=== PATIENT | female | born 1985 | race Caucasian/White ===

== ENCOUNTER 2025-01-25 09:20 | Emergency (ER) | payer BC, SELFPAY ==
[2025-01-25 09:26] VITALS: BP 151/102
[2025-01-25 09:53] LABS: Urine Character Clear (Clear)
[2025-01-25 10:02] LABS: Urine Squamous Cell >30 /LPF (Few)
[2025-01-25 10:03] LABS: Urine Red Blood Cell 0-2 /HPF (0-2)
--- NOTE | 2025-01-25 10:06 | ED.GENMED ---
History of Present Illness
General
Chief Complaint: Back Pain
Source: patient
Time Seen by Provider: 01/25/25 09:46
History of Present Illness
History of Present Illness:
39-year-old female presenting to the emergency department for evaluation of mid to right upper back pain that has been ongoing for 1 week, initially more mild, thought to be may be related to urinary tract infections and went to the primary care
provider who did a urinalysis but had started an antibiotic, urine culture came back negative so patient stopped taking the antibiotic. She does report maybe feeling a little bit of urinary frequency during this time. Has attempted Tylenol/Advil
with minimal relief. Pain not reproducible with movement but she is able to palpate the area which does seem to reproduce the pain. Denies any fevers, chills, rigors, cough, pleurisy, hemoptysis, chest pain, shortness of breath or any other
concerns. She did not take anything for the pain prior to arrival. Social history noncontributory. Family history also noncontributory.
Past History
Past History
ED Past Medical History: None
ED Past Surgical History: and Other (Breast reduction)
Social History
Tobacco: Non-smoker
Alcohol: None
Drug: None
Personal:
Living: with family
Review of Systems
Review of Systems
All Other Systems: ROS reviewed and negative except as documented in HPI and ROS
Phy Exam
Physical Exam
Physical Exam:
GENERAL: Alert , in no apparent distress
EYE: conjunctiva clear
NECK: Supple
ENT: o/p clr, mmm.
CARDIAC: Regular rate and rhythm
LUNGS: Clear breath sounds bilaterally, no acute respiratory distress, no wheezes/rales/rhonchi
ABDOMEN: Soft, nontender, nondistended
BACK: There is reproducible tenderness to the right mid back just below the inferior portion of the scapula
NEUROLOGICAL: Alert and oriented
SKIN: Warm and dry, skin intact.
MUSCULOSKELETAL: well perfused.
PSYCH: Normal and appropriate interaction.
Scores
Heart Failure Risk
Heart Failure Risk Score: Not Applicable
Heart Score for Chest Pain Patients
STEMI patient?: Not applicable
Withdrawal Assessment of Alcohol
Withdrawal Assessment Completed?: Not applicable
Course
Orders/Labs/Results
Orders:
Orders
01/25/25 09:40
Urinalysis Reflex To Culture Urgent
Date Specimen was Collected: 01/25/25
Time Specimen was Collected: 09:39
Urine Microscopic Reflex Cult Urgent
Urine Culture Urgent
MARTIN Source: U
Specimen Description:
Date Specimen was Collected: 01/25/25
Time Specimen was Collected: 09:39
01/25/25 09:57
Electrocardiogram (*1) Urgent
Reason for Study: Other
Other Reason for Exam: upper back pain
EKG- Treatment ONCE
01/25/25 10:20
Complete Blood Count/With Diff Urgent
Comprehensive Metabolic Panel Urgent
D-Dimer Urgent
HCG, Serum Qualitative Screen Urgent
Comment: HCG QUAL ADDED ON BY FLOOR 10:50AM 01-25-25
Troponin I Urgent
01/25/25 10:49
CT Chest PE Study Urgent
Comment:
Reason For Exam: right upper back pain
01/25/25 10:52
Add On- LAB Urgent
Tests Added?: hcg qual
Abnormal Lab Results
01/25/25 01/25/25
09:40 10:20
WBC 4.6 L 10^3/uL
(4.8-10.8)
MPV 11.1 H fL
(7.4-10.4)
D-Dimer 0.88 H ug/mlFEU
(0.00-0.50)
Chloride 111 H mmol/L
(98-107)
Leukocyte Esterase Rfl 1+ A
(Negative)
Urine Bacteria (Reflex) Few A
(Negative)
Urine Albumin (Reflex) 1+ A
(Neg - Trace)
01/25/25 10:20
01/25/25 10:20
Vital Signs
Initial and Last Documented VS:
Initial Vital Signs
Temp Pulse Resp BP Pulse Ox
98.0 F 97 16 151/102 98
01/25/25 09:26 01/25/25 09:26 01/25/25 09:26 01/25/25 09:26 01/25/25 09:26
Last Documented Vital Signs
Temp Pulse Resp BP Pulse Ox
98.0 F 84 16 151/102 99
01/25/25 09:26 01/25/25 10:25 01/25/25 10:25 01/25/25 09:26 01/25/25 10:25
MDM/Problems Addressed
Differential Diagnosis Includes:
Musculoskeletal back pain
Less concern for urinary tract infection given negative culture from earlier this week
PE considered
Dissection
Atypical ACS
No skin findings to suggest shingles or infectious etiology
MDM/Problems Addressed:
39-year-old female presented the ER for right-sided upper back pain for the last week, gradually worsening, minimal improvement with Tylenol and NSAIDs. Pain reproducible here. Suspect muscular etiology is most likely. Noted elevated blood
pressure in triage. Will check labs, EKG and imaging pending D-dimer result. Disposition pending.
*Radiology
Radiology exam reviewed: radiology read reviewed
*Pulse Oximetry
SaO2: 98
Oxygen Mode of Delivery: Room air
Patient hypoxic: no
*EKG
Comparison EKG: no comparison EKG present
Heart Rate: 73
Rate: normal
Rhythm: sinus
Ischemia: no ischemia
*[employer] Interpretation
Rate: normal
Heart Rate: 73
Rhythm: sinus
*Critical Care Note
Total Time (30-74mins, 75-104mins- exclusive of procedures): Not Applicable
Patient Management
Escalation/DeEscalation of care consider admission/obs:
CTA is negative for pulmonary embolism. No acute findings on workup. At this time I do suspect muscular etiology is most likely. Will treat with baclofen and continued NSAIDs as needed for pain. Follow-up with primary care provider. Aware of
return cautions.
ED Attending Note
-
Portions of this chart may have been created with voice recognition software.� Occasional wrong word or��sound alike� substitutions may have occurred due to the inherent limitations of voice recognition software.
Discharge Plan
Departure
Patient Disposition: Home (Routine Discharge)
Date of Disposition: 01/25/25
Time of Disposition: 12:20
Patient with high blood pressure during this ER visit?: Yes
Discharge Problem:
Dorsalgia of thoracic region
Instructions: Upper Back Pain (DC)
Prescriptions:
New
baclofen 10 mg tablet
10 mg PO BID Qty: 8 0RF
No Action
citalopram 10 MG tablet
10 mg PO DAILY
bupropion HCl 100 MG tablet
100 mg PO DAILY
hydrocortisone acetate 25 MG suppository
25 mg HI BID Qty: 10 0RF
cefdinir 300 mg capsule
300 mg PO BID Qty: 14 0RF
Referrals:
Anabella Thomas DO [Family Provider, Family Practice]
Interventions
Interventions:
*Risk Screen - Suicide Last Done: 01/25/25 09:26
*General Assessment Last Done: 01/25/25 10:24
*Neglect/Abuse Screening Last Done: 01/25/25 09:26
*ED- Fall Risk Assessment Last Done: 01/25/25 10:24
*ED COVID-19 Vaccine History Last Done: 01/25/25 10:24
Discharge Date and Time
Print Language: FAROESE
[2025-01-25 10:22] VITALS: BMI 27.1
[2025-01-25 10:25] VITALS: BP 109/82
[2025-01-25 10:28] LABS: Hematocrit 43.5 % (37.0-47.0); Hemoglobin 14.7 g/dL (12.0-16.0); Mean Corp Hgb Conc. 33.8 g/dL (33.0-37.0); Mean Corpuscular Volume 88.6 fL (81.0-99.0); Nucleated Red Blood Cells % 0 %; Platelet Count 185 10^3/uL (130-400); Red Cell Dist. Width 12.9 % (11.5-14.5)
[2025-01-25 10:44] LABS: D-Dimer 0.88 ug/mlFEU (0.00-0.50)
[2025-01-25 10:48] LABS: ALT (SGPT) 16 U/L (0-35); AST (SGOT) 20 U/L (14-36); Albumin 4.7 g/dl (3.5-5.0); Alkaline Phosphatase 40 U/L (38-126); Blood Urea Nitrogen 14 mg/dl (7-17); Calcium 9.1 mg/dl (8.4-10.2); Carbon Dioxide 24 mmol/L (22-30); Chloride 111 mmol/L (98-107); Estimated Creatinine Clearance 108 ml/min; Glucose 86 mg/dl (70-99); Potassium 4.6 mmol/L (3.5-5.1); Sodium 139 mmol/L (135-145); Total Protein 7.4 g/dl (6.3-8.2); eGFR > 60.00
[2025-01-25 10:59] LABS: Troponin I < 0.012 ng/ml
[2025-01-25 11:00] VITALS: BP 97/65
[2025-01-25 11:17] LABS: HCG, Serum Qualitative Screen Negative
[2025-01-25 12:35] VITALS: BP 116/77
== END 2025-01-25 12:54 | disposition home or self-care (01) ==
LOC: EMR 09:20
PROVIDERS: Physician Assistant Medical; EMERGENCY PHYSICIAN Emergency Medicine; FAMILY PHYSICIAN Family Medicine
DX: M54.6 Pain in thoracic spine (principal); R35.0 Frequency of micturition; R03.0 Elevated blood-pressure reading, without diagnosis of hypertension
CPT/HCPCS: 99284; 71275; 80053; 81003; 81015; 84484; 84703; 85025; 85379; 87086; 93005; Q9967

== ENCOUNTER 2025-03-21 15:18 | Emergency (ER) | payer BC, SELFPAY ==
[2025-03-21 15:22] VITALS: BP 127/85
[2025-03-21 17:05] VITALS: BP 103/58
[2025-03-21 17:07] VITALS: BP 103/58
[2025-03-21 17:13] VITALS: BMI 26.8
--- NOTE | 2025-03-21 17:40 | ED.GENMED ---
History of Present Illness
General
Chief Complaint: Fever
Source: patient and spouse
Exam Limitations: none
Time Seen by Provider: 03/21/25 17:11
Nursing documentation reviewed up to this point in time: agreed with
History of Present Illness
History of Present Illness:
Patient presents to ED secondary to sudden onset of fever, chills, and diffuse body ache, which woke the patient up from sleep last night. Since then, symptoms have been persistent, with decreased appetite. Denies headache. Denies neck pain.
Denies sore throat. Denies coughing. Denies chest pain. Denies shortness of breath. Denies abdominal pain. Denies vomiting or diarrhea. Denies rash. Denies recent travel. Denies sick contact. Patient feels as though she has 'flulike'
symptoms. Patient had been treated successfully for Lyme disease in the past, when she did have similar muscle/body ache.
Past History
Past History
ED Past Medical History: None
ED Past Surgical History: and Other (Breast reduction)
Social History
Tobacco: Non-smoker
Alcohol: None
Drug: None
Personal:
Living: with family
Review of Systems
Review of Systems
Allergies reviewed?: Yes
All Other Systems: ROS reviewed and negative except as documented in HPI and ROS
Constitutional: Reports fever and chills
Respiratory: Reports no symptoms; Denies cough or trouble breathing
Cardiac: Reports no symptoms
ABD/GI: Reports no symptoms; Denies vomiting or diarrhea
: Reports no symptoms; Denies dysuria or frequency
Musculoskeletal: Reports muscle pain
Skin: Reports no symptoms
Neurological: Reports no symptoms; Denies dizzy, headache or weakness
Phy Exam
Physical Exam
Physical Exam:
Physical Exam
General: no apparent distress, not acutely ill. febrile. tachycardic
Head: nc/at. eomi
Neck: supple. no meningeal signs. normal posterior pharynx
Heart: tachycardic. no murmur
Lungs: no acute respiratory distress. clear bilaterally
Abdomen: normal bowel sounds. not tender.
Neuro: alert and oriented x 3. no focal neurological deficits
Skin: no rash
Psychiatric: well kept. interactive and cooperative
Extremities: no edema. no calf tenderness.
Sepsis
Sepsis Screening
Sepsis Assessment: Sepsis Ruled Out
Sepsis Screen
Sepsis Screen: Sepsis Ruled Out
Date: 03/22/25
Time: 06:40
Course
Orders/Labs/Results
Orders:
Orders
03/21/25 17:40
Dexamethasone Pf [Decadron] 10 mg PO NOW STA
03/21/25 17:41
0.9% Sodium Chloride 1000 ml [Nss] 1,000 ml IV BOLUS
Acetaminophen [Tylenol] 650 mg PO NOW STA
Ketorolac [Toradol] 15 mg IV NOW STA
03/21/25 17:45
Complete Blood Count/With Diff Urgent
Comprehensive Metabolic Panel Urgent
Magnesium Urgent
Blood Culture Q30M
MARTIN Source: Blood/Venous
Specimen Description:
Blood Parasites Urgent
MARTIN Source: Blood/Venous
Specimen Description:
03/21/25 17:46
Ehrlichia/Anaplasma by PCR [S] Urgent
Lactic Acid Q4H
Comment: CANCEL 2nd LACTIC ACID IF 1st LACTIC ACID IS LESS THAN 2
Lyme Progressive Urgent
03/21/25 18:35
Urinalysis Reflex To Culture Urgent
Date Specimen was Collected: 03/21/25
Time Specimen was Collected: 18:34
Blood Culture Q30M
MARTIN Source: Blood/Venous
Specimen Description:
03/21/25 19:09
Doxycycline [Vibramycin] 100 mg PO NOW STA
Abnormal Lab Results
03/21/25
17:45
WBC 3.0 L 10^3/uL
(4.8-10.8)
RBC 4.07 L 10^6/uL
(4.20-5.40)
MPV 11.0 H fL
(7.4-10.4)
Absolute Lymphs (auto) 0.1 L 10^3/uL
(1.2-3.4)
Neutrophils % 86.0 H %
(42.2-75.2)
Lymphocytes % 4.7 L %
(20.5-51.1)
Sodium 133 L mmol/L
(135-145)
Glucose 157 H mg/dl
(70-99)
03/21/25 17:45
03/21/25 17:45
Vital Signs
Initial and Last Documented VS:
Initial Vital Signs
Temp Pulse Resp BP Pulse Ox
101.7 F H 113 16 127/85 98
03/21/25 15:22 03/21/25 15:22 03/21/25 15:22 03/21/25 15:22 03/21/25 15:22
Last Documented Vital Signs
Temp Pulse Resp BP Pulse Ox
101.5 F H 102 16 104/67 96
03/21/25 17:07 03/21/25 19:30 03/21/25 19:30 03/21/25 19:00 03/21/25 17:40
MDM/Problems Addressed
MDM/Problems Addressed:
Blood work reviewed, significant for mild leukopenia. In light of patient's febrile presentation along with significant muscle pain, fatigue, and weakness, does raise possibility of potential tickborne illness. Patient has had history of Lyme
disease in the past. As such, after discussion, decision made to start patient empirically on doxycycline, with recommendation to follow-up with PCP for reevaluation. Patient will return to ED with worsening symptoms. Patient otherwise is alert,
awake, oriented, hemodynamically stable and nontoxic-appearing, at time of discharge, to the care of her spouse.
Blood culture pending. Tickborne illness panel pending.
*Pulse Oximetry
SaO2: 96
Oxygen Mode of Delivery: Room air
Patient hypoxic: no
*Critical Care Note
Total Time (30-74mins, 75-104mins- exclusive of procedures): Not Applicable
ED Attending Note
-
Portions of this chart may have been created with voice recognition software.� Occasional wrong word or��sound alike� substitutions may have occurred due to the inherent limitations of voice recognition software.
Discharge Plan
Departure
Patient Disposition: Home (Routine Discharge)
Date of Disposition: 03/21/25
Time of Disposition: 19:09
Patient with high blood pressure during this ER visit?: Yes
Condition: Fair
Discharge Problem:
Fever
Instructions: Fever, Adult (DC)
Prescriptions:
New
doxycycline hyclate 100 mg tablet
100 mg PO BID Qty: 27 0RF
No Action
citalopram 10 MG tablet
10 mg PO DAILY
bupropion HCl 100 MG tablet
100 mg PO DAILY
hydrocortisone acetate 25 MG suppository
25 mg IA BID Qty: 10 0RF
cefdinir 300 mg capsule
300 mg PO BID Qty: 14 0RF
baclofen 10 mg tablet
10 mg PO BID Qty: 8 0RF
Activity Restrictions/Additional Instructions:
As discussed, please follow-up with your primary care physician for reevaluation. Please consider return to ED with worsening symptoms. Your prescription has been sent electronically to [facility] pharmacy in [place].
Interventions
Interventions:
*Risk Screen - Suicide Last Done: 03/21/25 15:26
*General Assessment Last Done: 03/21/25 17:25
*Neglect/Abuse Screening Last Done: 03/21/25 15:26
*ED- Fall Risk Assessment Last Done: 03/21/25 17:25
*ED COVID-19 Vaccine History Last Done: 03/21/25 17:25
*Nursing Disposition Last Done: 03/21/25 19:38
ED- Neurological Assessment Last Done: 03/21/25 17:11
ED-Skin Assessment Last Done: 03/21/25 17:11
Discharge Date and Time
Discharge Date/Time: 03/21/25 19:39
Print Language: ESTONIAN
[2025-03-21] MEDS: NSS 1000 IV (17:54)
[2025-03-21 18:10] LABS: Hematocrit 37.0 % (37.0-47.0); Hemoglobin 12.3 g/dL (12.0-16.0); Mean Corp Hgb Conc. 33.2 g/dL (33.0-37.0); Mean Corpuscular Volume 90.9 fL (81.0-99.0); Nucleated Red Blood Cells % 0 %; Platelet Count 154 10^3/uL (130-400); Red Cell Dist. Width 14.2 % (11.5-14.5)
[2025-03-21 18:15] LABS: ALT (SGPT) 25 U/L (0-35); AST (SGOT) 28 U/L (14-36); Albumin 4.3 g/dl (3.5-5.0); Alkaline Phosphatase 43 U/L (38-126); Blood Urea Nitrogen 7 mg/dl (7-17); Calcium 9.0 mg/dl (8.4-10.2); Carbon Dioxide 24 mmol/L (22-30); Chloride 103 mmol/L (98-107); Estimated Creatinine Clearance 123 ml/min; Glucose 157 mg/dl (70-99); Magnesium 2.2 mg/dl (1.6-2.3); Potassium 3.7 mmol/L (3.5-5.1); Sodium 133 mmol/L (135-145); Total Protein 7.0 g/dl (6.3-8.2); eGFR > 60.00
[2025-03-21] MEDS: TYLENOL 650 MG PO (18:19)
[2025-03-21] MEDS: TORADOL 15 MG IV (18:19)
[2025-03-21 18:22] VITALS: BP 111/70
[2025-03-21 18:46] LABS: Urine Character Clear (Clear)
[2025-03-21 19:00] VITALS: BP 104/67
[2025-03-21] MEDS: VIBRAMYCIN 100 MG PO (19:25)
[2025-03-25 15:57] LABS: Lyme Antibody Screen, EIA Negative (Negative)
== END 2025-03-21 19:39 | disposition home or self-care (01) ==
LOC: EMR 15:18
PROVIDERS: EMERGENCY PHYSICIAN Emergency Medicine; FAMILY PHYSICIAN Family Medicine
DX: R50.9 Fever, unspecified (principal); D72.819 Decreased white blood cell count, unspecified; Z86.19 Personal history of other infectious and parasitic diseases
CPT/HCPCS: 99284; 96374; 96361; 80053; 81003; 83605; 83735; 85025; 86618; 87015; 87040; 87207; 87468; 87484; 87798